=== PATIENT | female | born 1995 | race American Indian/Alaskan Native ===

== ENCOUNTER 2016-07-27 11:40 | Emergency (ER) | payer BC ==
[2016-07-27 11:52] VITALS: BP 130/72
[2016-07-27] MEDS ORDERED: TYLENOL/CODEINE PO ONE (14:02)
[2016-07-27] MEDS ORDERED: DELTASONE PO ONE (14:02)
--- NOTE | 2016-07-27 14:07 | Emergency Department Report ---
HPI - General Chief Complaint: Upper Respiratory Infection Time Seen by Provider: 07/27/16 13:44 - HPI HPI: Patient is a 20-year-old female who presents to ED complaining of dry nonproductive cough for the past 2 weeks. Patient states cough is progressed in the last couple of days and yesterday she noticed green sputum productive cough. Patient states she started again tightness in the chest from intermittent coughing. Patient admits is seasonal allergies. She insists last menstrual period as 06/24/2016. Patient states she is on Mirena iud contraceptive is not . Patient denies fever/chills/nausea/vomiting this abdominal pain/chest pain/ dizziness/headache/blurred vision. ED Past Medical Hx - Past Medical History Previous Medical History?: Yes Additional medical history: hx pneumonia 2013 - Surgical History Past Surgical History?: No - Social History Smoking Status: Never Smoker Substance Use Type: Alcohol - Medications Home Medications: Home Medications Medication Instructions Recorded Confirmed Last Taken Type ALBUTEROL Inhaler [ProAir HFA 2 puff IH QID PRN #1 pump 07/27/16 Unknown Rx Inhaler] Acetamin/Codeine 120-12Mg/5 ml 10 ml PO TID #90 ml 07/27/16 Unknown Rx [Tylenol/Codeine 120-12 mg/5 ml] Azithromycin [Zithromax Z-CAROL] 250 mg PO DAILY #4 tablet 07/27/16 Unknown Rx Prednisone [predniSONE 10 mg 10 mg PO .TAPER #1 tab.ds.pk 07/27/16 Unknown Rx (6-Day Pack, 21 Tabs)] ED Review of Systems ROS: Stated complaint: JOSH/CHEST TIGHTNESS Other details as noted in HPI Constitutional: denies: chills, fever Eyes: denies: eye pain, eye discharge, vision change ENT: denies: ear pain, throat pain Respiratory: denies: cough, shortness of breath, wheezing Cardiovascular: denies: chest pain, palpitations Endocrine: no symptoms reported Gastrointestinal: denies: abdominal pain, nausea, diarrhea Genitourinary: denies: urgency, dysuria, discharge Musculoskeletal: denies: back pain, joint swelling, arthralgia Skin: denies: rash, lesions Neurological: denies: headache, weakness, paresthesias Psychiatric: denies: anxiety, depression Hematological/Lymphatic: denies: easy bleeding, easy bruising Physical Exam - Physical Exam Vital Signs: Vital Signs 07/27/16 11:44 Temperature 99.3 F Pulse Rate 95 H Respiratory 20 Rate Blood Pressure 130/72 O2 Sat by Pulse 100 Oximetry Physical Exam: GENERAL: Alert and oriented x3, no apparent distress, Normal Gait, atraumatic. HEAD: Head is normocephalic and a-traumatic. EYES: Extra ocular muscles are intact. Pupils are equal, round, and reactive to light and accommodation. EARS: symetrical, atraumatic, non tender, ear canal clear and moderate cerumen, tympanic membrance non inflamed. gross auditory nml bilaterally. NOSE: Nose symetrical, Nontender,Nares appeared normal. MOUTH:Mouth is well hydrated and without lesions. Tonsils nonerythematous or swollen, Uvula midline, Tongue not elevated. Mucous membranes are moist. Posterior pharynx clear, no exudate or lesions. Patent airways. NECK: Supple. Non edematous, No carotid bruits. No lymphadenopathy or thyromegaly. LUNGS: Symetrical with respiration, No wheezing, no rales or crackles, CTAB. HEART: S1, S2 present, regular rate and rhythm without murmur, no rubs, no gallops. ABDOMEN: No organomegaly was noted,Positive bowel sounds, soft, and non- distended. . Nontender to palpation on all Quadrants, NO CVA tenderness. EXTREMITIES/MUSCULOSKELETAL: No cyanosis, clubbing, rash, lesions or edema. Full ROM bilaterally. UE/LE Pulses 2+ bilaterally. NEUROLOGIC: No focal Deficit, Cranial nerves II through XII are grossly intact. No loss of sensation, PSYCHIATRIC: Mood is congruent with affect, denies suicidal or homicidal ideations. SKIN: Warm and dry, No lesions, No ulceration or induration present. ED Course Vital Signs 07/27/16 11:44 Temperature 99.3 F Pulse Rate 95 H Respiratory 20 Rate Blood Pressure 130/72 O2 Sat by Pulse 100 Oximetry ED Medical Decision Making - Radiology Data Radiology results: report reviewed, image reviewed Chest 2 views: History: Cough. Findings: Normal cardiomediastinal silhouette the trachea is midline. No consolidation, pneumothorax or pleural effusion. Impression: No acute cardiopulmonary findings. Transcribed By: PTP Dictated By: KRYSTAL CONNELLY MD Electronically Authenticated By: KRYSTAL CONNELLY MD Signed Date/Time: 07/27/16 1424 - Medical Decision Making 1-year-old female presents with ED course: Patient received 60 mg of prednisone, Tylenol with Codeine, Chest x-ray ordered. Chest x-ray shows- normal xay- see above Discussed the patient home medication of albuterol, cough suppressant, antibiotic and resume. Discussed the patient is a medication is prescribed. Discussed x-ray findings the patient Discussed to follow up with primary care physician. Vital signs stable patient is in no acute or respiratory distress. Patient on the signs and symptoms worsen or new symptoms arise to return to the ED Critical care attestation.: If time is entered above; I have spent that time in minutes in the direct care of this critically ill patient, excluding procedure time. ED Disposition Clinical Impression: URI (upper respiratory infection) Acute bronchitis Qualifiers: Bronchitis organism: unspecified organism Qualified Code(s): J20.9 - Acute bronchitis, unspecified Disposition: DISCHARGED TO HOME OR SELFCARE Is pt being admited?: No Does the pt Need Aspirin: No Condition: Stable Instructions: Acute Bronchitis (ED), Upper Respiratory Infection (ED) Prescriptions: Acetamin/Codeine 120-12Mg/5 ml [Tylenol/Codeine 120-12 mg/5 ml] 10 ml PO TID # 90 ml ALBUTEROL Inhaler [ProAir HFA Inhaler] 2 puff IH QID PRN #1 pump PRN Reason: Shortness Of Breath Azithromycin [Zithromax Z-CAROL] 250 mg PO DAILY #4 tablet Prednisone [predniSONE 10 mg (6-Day Pack, 21 Tabs)] 10 mg PO .TAPER #1 tab.ds.pk Referrals: PRIMARY CARE, [Primary Care Provider] - 3-5 Days TITO BURTON MD [Referring] - 3-5 Days BARBER BAH MD [Referring] - 3-5 Days PIETER MICHELLE MD [Referring] - 3-5 Days DAMION HERNADEZ MD [Referring] - 3-5 Days Forms: Work/School Release Form(ED) Time of Disposition: 14:44
--- NOTE | 2016-07-27 14:31 | XRay Report ---
Chest 2 views: History: Cough. Findings: Normal cardiomediastinal silhouette the trachea is midline. No consolidation, pneumothorax or pleural effusion. Impression: No acute cardiopulmonary findings.
== END 2016-07-27 15:01 | disposition home or self-care (01) ==
LOC: ED 11:40
DX: J20.9 Acute bronchitis, unspecified (principal); J06.9 Acute upper respiratory infection, unspecified
CPT/HCPCS: 71020; 99283; J7512